=== PATIENT | male | born 1995 | race Caucasian/White ===

== ENCOUNTER 2018-04-29 21:40 | Emergency (ER) | payer BC, OTHER ==
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
--- NOTE | 2018-04-30 06:46 | RAD REPORT ---
EXAM DESCRIPTION: RAD - Foot Right 3 View - 04/29/2018 11:04 pm CLINICAL HISTORY: Fall, foot injury, pain first toe COMPARISON: None. FINDINGS: Comminuted fracture of the first proximal phalanx is noted. Lateral projection is somewhat limited. However, there is evidence for dorsal displacement of the fracture fragments. Distal fractu re fragment maintains normal positioning to the first distal phalanx. No acute finding at the first M TP joint. Second-fifth toes are intact. No metatarsal or tarsal injury. No air or foreign body in the soft tissues. IMPRESSION: Comminuted fracture first proximal phalanx with dorsal displacement of the fracture frag ments.
== END 2018-04-29 22:53 | disposition home or self-care (01) ==
LOC: ER 21:40
DX: S92.491A Other fracture of right great toe, initial encounter for closed fracture (principal); V18.0XXA Pedal cycle driver injured in noncollision transport accident in nontraffic accident, initial encounter; Y93.89 Activity, other specified; Y92.413 State road as the place of occurrence of the external cause
CPT/HCPCS: 99283